=== PATIENT | male | born 1965 ===

== ENCOUNTER → 2022-09-18 11:17 | Outpatient (CLI) | payer BC, SELFPAY ==
--- NOTE | ~2022-09-18 | CT_ITS ---
Non-contrast CT scan of the Abdomen and Pelvis Clinical indication: Umbilical hernia Technique: 2.5 mm axial scans were obtained through the abdomen and pelvis without intravenous or or al contrast. Dose reduction technique was used on this scan by utilizing automated exposure control a nd iterative reconstruction technique. The dose-length product (DLP) was 1234.59 mGy-cm. Findings: Images through the lung bases reveal no abnormalities. There is no evidence of renal or ureteral calculi. The kidneys and the ureters are nondilated. The liver, spleen, pancreas, gallbladder, and adrenals appear normal. There is no aortic aneurysm. There is no evidence of bowel obstruction. Small fat-containing umbilical hernia present. No bowel in volvement in the hernia. No inflammatory change in the hernia. Normal appendix. Images through the pelvis were performed. There is no evidence of ascites or lymphadenopathy. Urinary bladder unremarkable. Prostate gland and seminal vesicles are unremarkable. Impression: Small fat-containing umbilical hernia, as detailed above. Reviewed, dictated and finalized at [place] [facility]. OSTATIC TESTER Impression: Small fat-containing umbilical hernia, as detailed above.
== END ==
PROVIDERS: PCP Surgery; Visit Provider Surgery
DX: K42.9 Umbilical hernia without obstruction or gangrene (principal)
CPT/HCPCS: 74176